=== PATIENT | male | born 1995 | race Two or more races ===

== ENCOUNTER 2023-04-23 13:07 | Emergency (ER) | payer OTHER ==
[~2023-04-23] VITALS: Ht 162.6 cm; Wt 95.3 kg
== END 2023-04-23 16:40 | disposition home or self-care (01) ==
LOC: ER 13:08
DX: S61.012A Laceration without foreign body of left thumb without damage to nail, initial encounter (principal); W27.8XXA Contact with other nonpowered hand tool, initial encounter; Y93.H3 Activity, building and construction; Y92.89 Other specified places as the place of occurrence of the external cause; Y99.0 Civilian activity done for income or pay